=== PATIENT | male | born 1950 | race Caucasian/White ===

== ENCOUNTER → 2022-04-13 | Outpatient (CLI) | payer BC ==
--- NOTE | 2022-04-13 09:08 | CT ---
EXAMINATION TYPE: CT lumbar spine wo con DATE OF EXAM: 04/13/2022 8:40 AM COMPARISON: Outside MRI lumbar spine January 11, 2022 HISTORY: Low back pain CT DLP: 3074.7 mGycm Automated exposure control for dose reduction was used. Unenhanced CT of the lumbar spine was performed. Bone and soft tissue window settings are submitted as well as coronal and sagittal reconstructions. There are 5 lumbar-type vertebra. There are bilateral pars defect L5 level with grade 1 anterolisthes is L5 on S1 redemonstrated measuring 10 mm long posterior vertebral body margin. There is slight grad e 1 retrolisthesis of L2 on L3, L3 on L4, and L4 on L5. Vertebral body heights are maintained. Mild-t o-moderate disc space narrowing greatest posteriorly at L3-L4 level. Mild disc space narrowing car pre cooler iorly at L2-L3 and posterior L4-L5 levels. Pcew-si-qxpsoher disc space narrowing vacuum disc phenomen on greatest posterior L5-S1 level. Mild to moderate multilevel anterior and lateral spurring. Axial images show T12-L1 and L1-L2 levels to appear within normal limits. Axial images at L2-L3 level show mild to moderate broad-based posterior disc protrusion effacing the anterior thecal sac with mild bilateral anterior inferior neural foraminal narrowing. Axial images at L3-L4 level mild/moderate broad-based posterior disc protrusion mildly effacing the a nterior thecal sac along with mild to moderate facet arthropathy bilaterally. Mild bilateral anterior inferior neural foraminal narrowing. Axial images at the L4-L5 level shows spondylolisthesis and facet arthropathy producing posterior lat eral thecal sac with posterior spur disc complex causing [id number] bilateral neural foraminal narrowing. Axial images at the L5-S1 level shows spondylolisthesis and more moderate facet arthropathy. Spondylo listhesis causes severe bilateral neural foraminal narrowing with pseudodisc herniation and correlate s with most recent MRI. No suspicious retroperitoneal findings. IMPRESSION: Bilateral pars defect with significant spondylolisthesis L5-S1 level. Advanced bilateral neural foraminal narrowing at this level noted due to spondylolisthesis. Multilevel spondylolisthesis and degenerative changes in the lumbar spine also appreciated as detailed above.
== END | disposition home or self-care (01) ==
LOC: RADCTMAIN 08:02
PROVIDERS: ATTEND Orthopaedic Surgery
DX: M43.16 Spondylolisthesis, lumbar region (principal); M48.061 Spinal stenosis, lumbar region without neurogenic claudication
CPT/HCPCS: 72131